=== PATIENT | female | born 1945 | race Caucasian/White ===

== ENCOUNTER 2016-09-12 10:18 | Emergency (ER) | payer MEDICARE ==
[~2016-09-12] VITALS: Ht 152.4 cm; Wt 62.0 kg
[2016-09-12 10:23] VITALS: BP 151/74; PULSE 95; RESP 18; TEMP 98.2; O2SAT 96
--- NOTE | 2016-09-12 10:25 | PD ---
HPI Chief Complaint: angioedema Time Seen by Provider: 10:23 Travel History International Travel<30 days: No Contact w/Intl Traveler<30days: No Traveled to known affect area: No History of Present Illness HPI 71-year-old female came to the emergency room with history of swelling of her lips and face when she woke up this morning. She went to the urgent care and was diagnosed with angioedema. She was given epinephrine, Benadryl and Decadron IM. She was sent to the ER via ambulance. Patient says that she thinks the swelling is little bit better. No history of drooling or difficulty breathing. Patient was slightly tachycardic upon arrival. No respiratory difficulty. [facility] Past Medical History Narrative Medical List of her past medical, surgical, social and family history is reviewed from the nursing note. Social History Tobacco Use: No Allergies-Medications (Allergen,Severity, Reaction): Coded Allergies: Sulfa (Verified Allergy, Intermediate, hives, 09/12/16) Comments List of her allergies reviewed from the nursing note. Reported Meds & Prescriptions Reported Meds & Active Scripts Active Lopressor (Metoprolol Tartrate) 50 Mg Tab 25 Mg PO BID Benadryl Allergy (Diphenhydramine HCl) 25 Mg Tab 25 Mg PO Q6H PRN 5 Days Prednisone 20 Mg Tab 20 Mg PO BID 5 Days Reported Dexamethasone Inj 4 Mg/Ml Inj 8 Mg IM ONCE Benadryl Allergy (Diphenhydramine HCl) 25 Mg Cap 50 Mg IM ONCE Epinephrine Inj (Epinephrine) 0.3 Mg/0.3 Ml Pfpen 0.3 Mg IM ONCE PRN Lovastatin 40 Mg Tab 40 Mg PO DAILY Lisinopril 20 Mg Tab 20 Mg PO BID Amlodipine (Amlodipine Besylate) 5 Mg Tab 5 Mg PO DAILY Narrative Medication List of her home medications reviewed from the nursing note. Review of Systems Except as stated in HPI: all other systems reviewed are Neg Physical Exam Narrative GENERAL: Awake, alert, mild distress SKIN: Focused skin assessment warm/dry. HEAD: Atraumatic. Normocephalic. EYES: Pupils equal and round. No scleral icterus. No injection or drainage. ENT: No nasal bleeding or discharge. Mucous membranes pink and moist. Swelling of her upper lip, left side of her cheek and slightly of her lower lip. No tongue swelling. No drooling or stridor. NECK: Trachea midline. No JVD. CARDIOVASCULAR: Regular rate and rhythm. No murmur appreciated. RESPIRATORY: No accessory muscle use. Clear to auscultation. Breath sounds equal bilaterally. GASTROINTESTINAL: Abdomen soft, non-tender, nondistended. Hepatic and splenic margins not palpable. MUSCULOSKELETAL: No obvious deformities. No clubbing. No cyanosis. No edema. NEUROLOGICAL: Awake and alert. No obvious cranial nerve deficits. Motor grossly within normal limits. Normal speech. PSYCHIATRIC: Appropriate mood and affect; insight and judgment normal. Data Data Last Documented VS Vital Signs Date Time Temp Pulse Resp B/P Pulse Ox O2 Delivery O2 Flow Rate FiO2 09/12/16 13:21 84 112/71 98 Room Air 09/12/16 10:59 18 09/12/16 10:23 98.2 [facility] Medical Decision Making Medical Screen Exam Complete: Yes Emergency Medical Condition: Yes Medical Record Reviewed: Yes Differential Diagnosis Angioedema Narrative Course 12:28 PM I explained to the patient that after epinephrine she would need to be observed for 4 hours from the time she received epinephrine. That would end at 1:30 PM. If the symptoms do not worsen other comfortable discharging her home. And is on BRENDA inhibitor and I have asked her to stay off it since the angioedema could be secondary to that. Currently she remained stable. 1:28 PM I just examined the patient and her swelling is much better. Patient will be discharged home on prescription. Procedures EKG Prior to Arrival: No Diagnosis Primary Impression: Angioedema Qualified Code: T78.3XXA - Angioedema, initial encounter Referrals: Primary Care Physician 2 days Additional Instructions: Please return to the ER if the condition worsens or any other new concerns. Take the medications as per the prescription direction. He needs to stop taking lisinopril and take the other medication prescribed to by me. Follow-up with your primary care in couple days. Med/Other Pt SpecificInfo: Prescription(s) given Scripts Metoprolol Tartrate (Lopressor)50 Mg Tab25 Mg PO BID #30 TAB Ref 0 Prov:Esther Hunter MD 09/12/16 Diphenhydramine (Benadryl Allergy)25 Mg Tab25 Mg PO Q6H PRN (ALLERGIES) 5 Days Ref 0 Prov:Esther Hunter MD 09/12/16 Prednisone 20 Mg Tab20 Mg PO BID 5 Days Ref 0 Prov:Esther Hunter MD 09/12/16 Disposition: 01 DISCHARGE HOME Condition: Stable Esther Hunter MD September 12, 2016 10:25
[2016-09-12] MEDS ORDERED: AMLO5TAB2 PO (10:37)
[2016-09-12] MEDS ORDERED: LOVA40TA PO (10:37)
[2016-09-12] MEDS ORDERED: LISI-515 PO (10:37)
[2016-09-12 10:59] VITALS: BP 121/75; PULSE 100; RESP 18; O2SAT 96
[2016-09-12] MEDS ORDERED: EPIN1INJ17 IM (11:19)
[2016-09-12] MEDS ORDERED: DEXA4INJ9 IM (11:19)
[2016-09-12] MEDS ORDERED: BENA25CA4 IM (11:19)
[2016-09-12 13:21] VITALS: BP 112/71; PULSE 84; O2SAT 98
[2016-09-12] MEDS ORDERED: METO-309 PO (13:31)
[2016-09-12] MEDS ORDERED: PRED20 PO (13:31)
[2016-09-12] MEDS ORDERED: BENA25TA3 PO (13:31)
== END 2016-09-12 13:38 | disposition home or self-care (01) ==
LOC: PHED 10:18
DX: T78.3XXA Angioneurotic edema, initial encounter (principal)
CPT/HCPCS: 99283